=== PATIENT | female | born 1965 | race Caucasian/White ===

== ENCOUNTER 2018-11-12 13:20 | Emergency (ER) | payer OTHER ==
[~2018-11-12] VITALS: Ht 167.6 cm; Wt 106.1 kg
[2018-11-12 13:56] LABS: ABSOLUTE LYMPHOCYTES 0.9 thou/uL (0.8-5.3); ABSOLUTE MONOCYTES 0.4 thou/uL (0.0-1.2); BASOPHILS 0.3 %; EOSINOPHILS 0.4 %; HEMATOCRIT 42.2 % (37.0-47.0); HEMOGLOBIN 14.5 gm/dL (12.0-15.0); LYMPHOCYTES 10.8 %; MCH 33.1 pg (26.0-34.0); MCHC 34.3 g/dL (28.0-37.0); MCV 96.4 fL (80.0-100.0); MONOCYTES 4.4 %; MPV 8.3 fl. (7.2-11.1); NUCLEATED RBCS 0 /100WBC; PLATELET COUNT* 101 thou/uL (150-400); POLYS 84.1 %; RBC 4.37 mil/uL (4.20-5.00); RDW-CV 13.8 % (10.5-14.5); WBC 8.3 thou/uL (4.0-11.0)
[2018-11-12 14:03] LABS: CALCIUM 8.7 mg/dL (8.5-10.1); POTASSIUM 4.1 mmol/L (3.5-5.1)
[2018-11-12 14:08] LABS: ALBUMIN 3.7 g/dL (3.4-5.0); TOTAL BILIRUBIN 0.5 mg/dL (<0.1-1.0); TOTAL PROTEIN 7.8 g/dL (6.4-8.2)
[2018-11-12] MEDS ORDERED: VALIUM5 MG PO (15:46)
[2018-11-12] MEDS ORDERED: NORCO 5-325 TA1 EACH PO (15:46)
[2018-11-12] MEDS ORDERED: IBUPROFEN 800800 MG PO (15:46)
[2018-11-12 16:23] VITALS: BP 122/76
== END 2018-11-12 16:26 | disposition home or self-care (01) ==
LOC: M.ERS 13:20
PROVIDERS: Personal Emergency Response Attendant
DX: S93.491A Sprain of other ligament of right ankle, initial encounter (principal); S30.1XXA Contusion of abdominal wall, initial encounter; V89.2XXA Person injured in unspecified motor-vehicle accident, traffic, initial encounter; Y92.89 Other specified places as the place of occurrence of the external cause; Y93.89 Activity, other specified; Y99.8 Other external cause status